=== PATIENT | female | born 1985 | race Caucasian/White ===

== ENCOUNTER 2019-09-11 20:43 | Inpatient (IN) | payer BC ==
[~2019-09-11 20:43] MED LIST: Bupivacaine 0.25% HCL 30 ML VIAL ONE
[2019-09-11 21:25] VITALS: BMI 29.2
[2019-09-11 23:44] LABS: Hemoglobin 12.6 g/dL (12.0-16.0); Mean Corpuscular HGB CONC 35.1 g/dL (32.0-36.0); Mean Corpuscular Hemoglobin 31.7 pg (27.0-31.0); Mean Corpuscular Volume 90.5 fL (78.0-98.0); Mean Platelet Volume 9.3 fL (7.4-10.4); Platelet Count 153 thou/uL (130-400); RBC Distribution Width 12.1 % (11.5-14.5); Red Blood Cell (RBC) Count 3.97 mill/uL (4.20-5.40); White Blood Cell (WBC) Count 13.4 thou/uL (4.8-10.8)
[2019-09-12] MEDS ORDERED: Fentanyl 4 mcg/Bup 0.1% Cadd 100 ML ONE
[2019-09-12 00:22] LABS: Syphilis Antibody Nonreactive (Nonreactive); Syphilis Antibody Index 0.05 S/CO (<1.00 Non-Reactive)
[2019-09-12 00:23] LABS: HBSAg Index 0.24 S/CO (0-0.99); Hep B Surf Ag Non-Reactive S/CO (NonReactive)
[2019-09-12] MEDS ORDERED: NS / Oxytocin 40 units/1000ml 1,000 ML ONE (01:00)
[2019-09-12] MEDS ORDERED: Lidocaine 1% (PF) 30 ML VIAL ONE (01:00)
[2019-09-12] MEDS ORDERED: NS w/ Oxytocin 10 units 500 ML IV SCH ×2 (01:15)
[2019-09-12] MEDS ORDERED: Methylergonovine 0.2 MG/ML VIAL IM PRN (01:15)
[2019-09-12] MEDS ORDERED: Ibuprofen 800 MG TAB PO PRN (01:15)
[2019-09-12] MEDS ORDERED: Misoprostol 200 MCG TAB RC PRN (01:15)
[2019-09-12] MEDS ORDERED: Lidocaine 1% (PF) 30 ML VIAL SC PRN (01:15)
[2019-09-12] MEDS ORDERED: Carboprost 250 MCG/ML AMP IM PRN (01:15)
[2019-09-12] MEDS ORDERED: Ondansetron PF 4 MG/2 ML Vial IVP PRN ×3 (01:16→08:15)
[2019-09-12] MEDS ORDERED: Promethazine HCl 25 MG/ML VIAL IM PRN ×3 (01:16→08:15)
[2019-09-12] MEDS ORDERED: Acetaminophen 500 MG TAB PO PRN (01:16)
[2019-09-12] MEDS ORDERED: hydrALAZINE 20 MG/ML VIAL SLOW IVP PRN ×3 (01:16→08:15)
--- NOTE | 2019-09-12 01:46 | PDOC.OPDEL ---
OB Operative/Delivery Note Delivery Dr/Surgeon: Duane (for roni) Assist: none (except patient who I asked if wanted to assist with ) Pre-Delivery Diagnosis: active labor, other (thin mec) Procedure/Post Delivery Dx: spontaneous vaginal delivery Weeks gestation: 41 Anesthesia: epidural (poured on vulva) - Findings A Sex: male - 1 min: 8 - 5 min: 9 - Additional Findings/Plan Placenta delivered: spontaneous (Placenta at 0135; baby at 0124...placenta light mec stained, dickson delivery...3vc, no NC) Repaired Obstetrical Laceration: 1st degree (midline repaired with 2-0 chromic) Estimated blood loss: 200 (same as QBL) Compilations/Other Findings: no NC; NICU present for delivery; vigorous child. I asked patient's if he would like to assist with delivery and he placed sterile gloves and helped with delivery. Placenta and cord gas ordered 30 sec delayed cord clamp done skin to skin done
[2019-09-12] MEDS ORDERED: Milk Of Magnesia 30 ML UDCUP PO PRN ×2 (01:48→08:15)
[2019-09-12] MEDS ORDERED: Lanolin Ointment 7 GM TUBE TOP PRN ×2 (01:48→08:15)
[2019-09-12] MEDS ORDERED: Bisacodyl 10 MG SUPP PR PRN ×2 (01:48→08:15)
[2019-09-12] MEDS ORDERED: Acetaminophen/Codeine 30-300mg Tablet PO PRN ×2 (01:48)
[2019-09-12] MEDS ORDERED: Benzocaine-Menthol 82.5 ML CAN TOP PRN ×2 (01:48→08:15)
[2019-09-12] MEDS ORDERED: NS / Oxytocin 40 units/1000ml 1,000 ML IV SCH ×2 (02:00→08:15)
[2019-09-12 02:36] LABS: Actual Bicarbonate (HCO3v) 21 mEq/L (22-28); Base Excess -5.6 mEq/L (-2.0 to +3.0); pH (Cord, venous) 7.28 (7.32-7.43)
[2019-09-12 02:37] LABS: Base Excess (BEa) -5.4 mEq/L (-2.0 to +3.0)
[2019-09-12] MEDS ORDERED: Lactated Ringer's 1,000 ML IV SCH (02:45)
--- NOTE | 2019-09-12 02:46 | PDOC.EVN ---
Event Note - Event Note Event Note: Called to assess episode of PP bleed. Cytotec 800mcg IA placed by RN as I was enetering room just now. I am at bedside and no further active VB. I have requested I/O cath to empty bladder. Pulse 97, 107/55 My estimate is about 500...making it about 700ml total so far (under the 1000ml PPH)
[2019-09-12] MEDS ORDERED: Lactated Ringer's 500 ML IV PRN (03:00)
[2019-09-12] MEDS ORDERED: Naloxone HCl 0.4 mg/ml Vial IVP PRN ×2 (03:00)
[2019-09-12] MEDS ORDERED: diphenhydrAMINE 50 MG/ML VIAL IVP PRN (03:00)
[2019-09-12] MEDS ORDERED: Communication Order-Pharmacy FS SCH (03:00)
[2019-09-12] MEDS ORDERED: Acetaminophen 325 MG TAB PO PRN (03:00)
[2019-09-12] MEDS ORDERED: EPHEDRINE 25 MG/5 ML SYRINGE SLOW IVP PRN (03:00)
[2019-09-12] MEDS ORDERED: Fentanyl 4 mcg/Bupivacaine 0.1% Cassette 100 ML EPIDURAL SCH (03:00)
--- NOTE | 2019-09-12 03:30 | PDOC.EVN ---
Event Note - Event Note Event Note: clots expressed again. Total about 900ml or so with this episode. I have ordered TXA and methergine x1
[2019-09-12] MEDS ORDERED: Tranexamic Acid 1,000 MG/10 ML VIAL ONE (03:31)
[2019-09-12] MEDS ORDERED: Methylergonovine 0.2 MG/ML VIAL IM SCH (03:45)
[2019-09-12] MEDS ORDERED: Tranexamic Acid 1,000 MG/10 ML VIAL IVP SCH (04:00)
--- NOTE | 2019-09-12 04:20 | PDOC.EVN ---
Event Note - Event Note Event Note: at bedside now, still with some episodes of VB PP. EBL about 1 liter. I have ordered stat HH. Clinton being placed. Pulse 86, BP 122/66 Starting HCT 36
--- NOTE | 2019-09-12 04:27 | PDOC.EVN ---
Event Note - Event Note Event Note: Bleeding now minimal after lawrence. I think EBL total is now about 1000ml. I have ordered hemabate 250mcg x 1 Brisk cap refill. if we get to 1500ml, will transfuse.
[2019-09-12] MEDS ORDERED: Carboprost 250 MCG/ML AMP IM SCH (04:30)
[2019-09-12 04:58] LABS: Mean Corpuscular HGB CONC 35.2 g/dL (32.0-36.0); Mean Corpuscular Hemoglobin 31.6 pg (27.0-31.0); Mean Corpuscular Volume 89.9 fL (78.0-98.0); Mean Platelet Volume 8.9 fL (7.4-10.4); Platelet Count 141 thou/uL (130-400); RBC Distribution Width 11.8 % (11.5-14.5); Red Blood Cell (RBC) Count 3.46 mill/uL (4.20-5.40); White Blood Cell (WBC) Count 20.1 thou/uL (4.8-10.8)
--- NOTE | 2019-09-12 05:01 | PDOC.EVN ---
Event Note - Event Note Event Note: Hct 31
[2019-09-12] MEDS ORDERED: Ibuprofen 800 MG TAB PO SCH (06:00)
[2019-09-12] MEDS ORDERED: Ferrous Sulfate 325 MG TAB PO SCH (08:00)
[2019-09-12] MEDS ORDERED: HYDROcodone/Acetaminophen 5/325 mg Tablet PO PRN (08:15)
[2019-09-12] MEDS ORDERED: diphenhydrAMINE 25 MG CAP PO PRN (08:15)
[2019-09-12] MEDS ORDERED: Preparation H Ointment 28 GM TUBE PR PRN (08:15)
[2019-09-12] MEDS ORDERED: Varicella virus, LIVE 0.5 ML VIAL SC ONE (09:00)
[2019-09-12] MEDS ORDERED: Docusate Calcium (SURFAK) 240 MG CAP PO SCH (09:00)
[2019-09-12] MEDS ORDERED: Adacel (T-DAP) 0.5 ML SYRINGE IM ONE (09:00)
[2019-09-12] MEDS ORDERED: Measles/Mumps/Rubella 10 MCG/0.5 ML VIAL SC ONE (09:00)
[2019-09-12] MEDS ORDERED: Prenatal Vitamin 1 TAB PO SCH (09:00)
[2019-09-12] MEDS: Prenatal Vitamin 1 TAB PO SCH (10:57)
[2019-09-12] MEDS: Ibuprofen 800 MG TAB PO SCH ×2 (10:57→20:18)
[2019-09-12] MEDS: Docusate Calcium (SURFAK) 240 MG CAP PO SCH ×2 (10:58→20:18)
[2019-09-12] MEDS: HYDROcodone/Acetaminophen 5/325 mg Tablet PO PRN (17:01)
[2019-09-12] MEDS: Ferrous Sulfate 325 MG TAB PO SCH (17:02)
[2019-09-13 06:43] LABS: Hemoglobin 9.9 g/dL (12.0-16.0)
[2019-09-13] MEDS: Ibuprofen 800 MG TAB PO SCH ×2 (06:46→14:11)
[2019-09-13] MEDS: Ferrous Sulfate 325 MG TAB PO SCH (09:04)
[2019-09-13] MEDS: Prenatal Vitamin 1 TAB PO SCH (09:04)
[2019-09-13] MEDS: Docusate Calcium (SURFAK) 240 MG CAP PO SCH (09:04)
[2019-09-13] MEDS: HYDROcodone/Acetaminophen 5/325 mg Tablet PO PRN (09:08)
--- NOTE | 2019-09-13 11:28 | PDOC.PP ---
Post Progress Note Post Day #: 1 PO intake tolerated: yes Flatus: yes Ambulation: yes Vital Signs (12 hours) Temp Pulse Resp BP Pulse Ox 09/13/19 08:04 97.9 F 85 16 101/57 L 98 09/13/19 03:00 98.3 F 82 17 120/68 Weight Weight 170 lb - Physical Examination General: NAD Cardiovascular: RRR Respiratory: non-labored breathing Abdominal: no distention, appropriately TTP Fundus firm & at: umb-2 Extremities: negative homans (B) Neurological: no gross focal deficits Psychiatric: normal affect Result Diagrams: 09/13/19 06:28 Additional Labs: Post Labs Blood Type O POSITIVE 09/11/19 23:58 Hep Bs Antigen Non-Reactive S/CO (NonReactive) 09/11/19 23:34 - Assessment/Plan PPD1 s/p TSVD VSSAF Mild acute anemia due to blood loss at time of delivery, Will cont iron and PNV on DC, asymptomatic currently Doing well, lochia appropriate Rh pos RImm DC home FU 6w
[2019-09-13 11:47] VITALS: BP 119/60; TEMP 98.7
== END 2019-09-13 14:45 | disposition home or self-care (01) | DRG 806 ==
LOC: L&D/OP 20:43 → L&D-LIB 23:13 → 3SW 09-12 09:26
PROVIDERS: ADMIT Student in an Organized Health Care Education/Training Program; ATTEND Student in an Organized Health Care Education/Training Program
PROC: 10E0XZZ Delivery of Products of Conception, External Approach (ICD-10-PCS; principal; 2019-09-12)
PROC: 0HQ9XZZ Repair Perineum Skin, External Approach (ICD-10-PCS; 2019-09-12)
DX: O77.0 Labor and delivery complicated by meconium in amniotic fluid (principal); D62 Acute posthemorrhagic anemia; Z37.0 Single live birth; Z3A.41 41 weeks gestation of pregnancy; O70.0 First degree perineal laceration during delivery; O90.81 Anemia of the puerperium
CPT/HCPCS: 36415; 51702; 82805; 85014; 85018; 85027; 86780; 86850; 86900; 86901; 87340; 88307; 99285; J2001; J2210; J2405; J3490; S0020